=== PATIENT | male | born 1995 | race African-American/Black ===

== ENCOUNTER 2016-03-30 23:27 | Emergency (ER) | payer SELFPAY ==
[2016-03-31] MEDS ORDERED: Sulfameth/Trimethoprim DS 800-160mg TAB ONE ×2 (00:16)
--- NOTE | 2016-03-31 01:02 | ERRECORD ---
[facility] EMERGENCY RECORD HPI ABSCESS (TueMar 31, 2016 00:24 DHAM) CHIEF COMPLAINT: Patient presents for evaluation of swelling, Patient presents for evaluation of pain. HISTORIAN: History provided by patient. LOCATION: Symptoms are localized, most severe to right lateral hip. QUALITY: Pain is dull in nature, described as aching. SEVERITY: Current severity of pain rated as 4/10. TIME COURSE: Gradual onset of symptoms, 3, weeks ago, Symptoms are worsening, several lesions in this right lateral hip area "looked like scabs." but they dried up. this one is swelling and started draining today. ASSOCIATED WITH: No associated chills, Associated with drainage, No associated fever, Associated with warmth. COMPLICATING FACTORS: No complicating factors for wound healing. EXACERBATED BY: Patient's condition exacerbated by pressure in the area. RELIEVED BY: Patient's condition relieved by nothing. TETANUS: Tetanus status up to date. ROS (TueMar 31, 2016 00:24 DHAM) CONSTITUTIONAL: Negative constitutional review of systems, Historian denies chills, denies fatigue, denies fever. EYES: Negative eye review of systems, Historian denies eye pain, denies eye redness. ENT: Negative ears, nose, throat review of systems. CARDIOVASCULAR: Historian denies chest pain, denies dyspnea on exertion, denies syncope. RESPIRATORY: Historian denies cough, denies shortness of breath, denies sputum. GI: Historian denies abdominal pain, denies diarrhea, denies nausea, denies vomiting. GENITOURINARY MALE: Historian denies dysuria, denies urinary frequency, denies urinary urgency. MUSCULOSKELETAL: Historian denies arthralgias, denies myalgias, denies neck pain. SKIN: Historian denies cellulitis, denies rash, reports skin changes, reports skin lesions. NEUROLOGIC: Historian denies confusion, denies headache, denies paresthesias. PSYCHIATRIC: Historian denies anxiety, denies depression. NOTES: All systems reviewed, negative except as described above. PAST MEDICAL HISTORY MEDICAL HISTORY: Flu vaccine not up to date, Tetanus not up to date, Pneumococcal vaccine not up to date, Past medical history includes pulmonary disease, asthma. REVIEWED 03/30/16. (23:34 AADK) Flu vaccine not up to date, Tetanus up to date, Pneumococcal vaccine not up to date, Past medical history includes pulmonary &a-1R&a+25V*p+0X*p3887F*c202B*c15G*c2P*p-0X&a-25V&a+1R Name: Mariposa Hicks : 1995 M20 MedRec: [id number] AcctNum: [id number] Prepared: TueMar 31, 2016 09:03 by Interface Page 1 of 3 pMD [facility] EMERGENCY RECORD disease, asthma. REVIEWED 03/30/16. (TueMar 31, 2016 00:23 DHAM) MALE SURGICAL HISTORY: Patient has no surgical history. REVIEWED 03/30/16. (23:34 AADK) PSYCHIATRIC HISTORY: No previous psychiatric history. REVIEWED 03/30/16. (23:34 AADK) SOCIAL HISTORY: Patient denies alcohol use, Patient denies drug use, Patient has no smoking history. REVIEWED 03/30/16. (23:34 AADK) FAMILY HISTORY: Family istory is not significant. (23:34 AADK) KNOWN ALLERGIES No Known Drug Allergies CURRENT MEDICATIONS (23:32 AADK) None VITAL SIGNS VITAL SIGNS: BP: 124/72, Pulse: 70 (Regular), Resp: 18 (Non-Labored), Temp: 98.2 (Oral), Pain: 4 (Constant), O2 sat: 99 on Room Air, Time: 03/30/2016 23:35. (23:35 AADK) BP: 118/68, Pulse: 66, Resp: 18 (Non-Labored), Temp: 97.9 (Oral), Pain: 0, O2 sat: 98 on Room Air, Time: 03/31/2016 00:44. (TueMar 31, 2016 00:44 AADK) PHYSICAL EXAM (TueMar 31, 2016 00:24 DHAM) CONSTITUTIONAL: Vital signs reviewed, Patient afebrile, Pulse normal, Blood pressure normal, Respiratory rate normal, Patient appears non toxic, Patient appears in pain, in mild pain distress, Patient alert and oriented to person, place and time. RESPIRATORY CHEST: Breath sounds clear, No wheezing, No rales, No rhonchi. CARDIOVASCULAR: Cardiovascular exam included findings of heart rate regular rate and rhythm, Heart sounds normal, Point of maximal impulse normal. ABDOMEN MALE: Abdominal exam included findings of abdomen nontender, Bowel sounds normal, Liver normal, Spleen normal, no distension, no mass, no peritoneal signs. UPPER EXTREMITY: Upper extremity exam normal, Radial pulse normal. LOWER EXTREMITY: Lower extremity exam included findings of inspection normal, Range of motion normal, Motor strength normal, see skin below. NEURO: [place] coma scale 15, Neuro exam findings include patient oriented to person, place and time, Speech normal, Gait normal, Cranial nerves intact. SKIN: Skin exam included findings of skin warm, dry, and normal in color, Rash present, right lateral hip over greater trochanter has a 3x3cm area of induration that is draining yellow pus. it is tender, and slightly warm. there are several 1-2cm dry &a-1R&a+25V*p+0X*f8725E*c202B*c15G*c2P*p-0X&a-25V&a+1R Name: Mariposa Hicks : 1995 M20 MedRec: [id number] AcctNum: [id number] Prepared: TueMar 31, 2016 09:03 by Interface Page 2 of 3 pMD [facility] EMERGENCY RECORD scabs that appear to be resolving. there is a .5x.5 cm nodule that is tender just 5cm inferior to the larger draining site. PSYCHIATRIC: Psychiatric exam included findings of patient oriented to person place and time, Normal affect, Judgment normal, Insight normal. MEDICATION ADMINISTRATION SUMMARY Drug Name: Bactrim DS, Dose Ordered: 2 tab(s), Route: Oral, Status: Given, Time: 00:17 03/31/2016, Detailed record available in Medication Service section. DOCTOR NOTES (TueMar 31, 2016 00:32 DHAM) TEXT: as this area is draining nicely, I think he will continue to improve with just oral abx. see dci. PROBLEM LIST No recorded problems DIAGNOSIS (TueMar 31, 2016 00:34 DHAM) FINAL: PRIMARY: abscess right hip. PRESCRIPTION (TueMar 31, 2016 00:34 DHAM) Bactrim DS: TABLET : 800 mg-160 mg : ORAL : Quantity: 1 Unit: tab(s) Route: ORAL Schedule: 2 times a day (before meals) Dispense: 24 Unit: tab(s) May substitute. Refills: No Refills . NOTES: 2 twice a day for 2 days the one twice a day for 8 more days No refills. DISPOSITION PATIENT: Disposition Type: Discharge, Disposition: *Discharge Home. (TueMar 31, 2016 00:34 TE) Patient left the department. (TueMar 31, 2016 00:50 VIVIAN) Vargas: VIVIAN=ADRIENNE Shetes, Jaelyn TIWARI=MD Manny, Addison &a-1R&a+25V*p+0X*k2020S*c202B*c15G*c2P*p-0X&a-25V&a+1R Name: Kurt Morenitapeng Cabrera : 1995 M20 MedRec: [id number] AcctNum: [id number] Prepared: TueMar 31, 2016 09:03 by Interface Page 3 of 3 pMD MTDD
--- NOTE | 2016-03-31 01:03 | PICIS ---
[facility] EMERGENCY RECORD TRIAGE (23:32 AADK) PATIENT: NAME: Mariposa Hicks, AGE: 20, GENDER: male, : Tue1995, TIME OF GREET: TueMar 30, 2016 23:28, PREFERRED LANGUAGE: Sami, ETHNICITY: Not or , ECODE BILLING MAP: [facility], SSN: [id number], Zip Code: [address], KG WEIGHT: [phone] (est.), PHONE: , , , PERSON ID: [id number], PAYMENT: [employer] Self Pay, PCP: NONE. (23:32 AADK) COMPLAINT: BUMP ON RIGHT HIP AND LEG. (23:32 AADK) ADMISSION: URGENCY: 4 Non Urgent, ADMISSION SOURCE: Home, TRANSPORT: CAR, BED: ER -02. (23:32 AADK) PAIN: Patient complains of pain described as, burning, stabbing, on a scale 0-10 patient rates pain as 4, Location RIGHT HIP/THIGH, Pain is constant. (23:34 AADK) TRIAGE SCREENING: Patient denies suicidal ideation, Patient denies presence of domestic violence. (23:34 AADK) PROVIDERS: TRIAGE NURSE: Jaelyn Sheets RN. (23:32 AADK) PREVIOUS VISIT ALLERGIES: No Known Drug Allergies. (23:32 AADK) No Known Drug Allergies. (23:34 AADK) KNOWN ALLERGIES No Known Drug Allergies CURRENT MEDICATIONS (23:32 AADK) None VITAL SIGNS VITAL SIGNS: BP: 124/72, Pulse: 70 (Regular), Resp: 18 (Non-Labored), Temp: 98.2 (Oral), Pain: 4 (Constant), O2 sat: 99 on Room Air, Time: 03/30/2016 23:35. (23:35 AADK) BP: 118/68, Pulse: 66, Resp: 18 (Non-Labored), Temp: 97.9 (Oral), Pain: 0, O2 sat: 98 on Room Air, Time: 03/31/2016 00:44. (TueMar 31, 2016 00:44 AADK) NURSING ASSESSMENT: SKIN (23:32 AADK) CONSTITUTIONAL: Patient arrives ambulatory, Gait steady, History obtained from patient, Patient appears comfortable, Patient cooperative, Patient alert, Oriented to person, place and time, Skin warm, Skin dry, Skin normal in color, Mucous membranes pink, Mucous membranes moist, Patient is well-groomed, Patient complains of BUMP ON RIGHT HIP AND LEG, PT PRESENTS TO ER WITH C/O BUMP TO RIGHT HIP AND LEG X2 WEEKS. PT STATES AREA STARTED HURTING TODAY IS WHY HE CAME TO ER. NOTED ABSCESS TO RIGHT OUTER HIP, DRAINING SCANT AMOUNT OF BLOOD, AREA WARM TO TOUCH WITH INDURATION. PT ALSO HAS A SECOND AREA JUST BELOW THIS ONE THAT IS INDURATED BUT NOT RED OR WARM TO TOUCH. THIS ONE HAS A YELLOW CENTER AND NO DRAINAGE. PT ALSO STATES 2 OTHER AREAS THAT WERE LIKE THESE THAT ARE NOW SCABBED. NOTED THESE AREAS ARE ALSO TO RIGHT LEG, UPPER, OUTER THIGH AREA. NO INDURATION NOTED, AREAS ARE SCABBED. PT DENIES HX OF STAPH. &a-1R&a+25V*p+0X*e4228Q*c202B*c15G*c2P*p-0X&a-25V&a+1R Name: Mariposa Hicks : 1995 M20 MedRec: [id number] AcctNum: [id number] Prepared: TueMar 31, 2016 09:10 by Interface Page 1 of 6 pMD [facility] EMERGENCY RECORD SKIN: Skin assessment findings include skin warm, Skin dry, Skin normal in color, Inspection findings include redness, to RIGHT HIP, Inspection findings include signs of infection, to RIGHT HIP, Notes: ABSCESS. SAFETY: Side rails up, Cart/Stretcher in lowest position, Call light within reach, Hospital ID band on, Friend(s) at bedside, Patient in view of the nursing station. NURSING PROCEDURE: DISCHARGE NOTE (TueMar 31, 2016 00:48 AADK) DISCHARGE: Patient discharged to home, ambulating without assistance, driving self, accompanied by friend, Summary of Care printed/ provided, Patient requested and was provided an electronic copy of Discharge Instructions, Transition record given to patient, Discharge instructions given to patient, Simple or moderate discharge teaching performed, Prescriptions given and instructions on side effects given, Above person(s) verbalized understanding of discharge instructions and follow-up care. BELONGINGS: Belongings remain with patient, Valuables remain with patient. MEDICATION ADMINISTRATION SUMMARY Drug Name: Bactrim DS, Dose Ordered: 2 tab(s), Route: Oral, Status: Given, Time: 00:17 03/31/2016, Detailed record available in Medication Service section. MEDICATION SERVICE Bactrim DS: Order: Bactrim DS (sulfamethoxazole/trimethoprim) - Dose: 2 tab(s) : Oral Schedule: Now Ordered by: Addison Bryant MD Entered by: Addison Bryant MD TueMar 31, 2016 00:06 Documented as given by: Bridgette Mallory RN TueMar 31, 2016 00:17 Patient, Medication, Dose, Route and Time verified prior to administration. Amount given: 2 TABS, Correct patient, time, route, dose and medication confirmed prior to administration, Patient advised of actions and side-effects prior to administration, Allergies confirmed and medications reviewed prior to administration, Patient in position of comfort, Side rails up, Cart in lowest position, Family at bedside. : Follow Up : Response assessment performed, No signs or symptoms of allergic reaction noted. (TueMar 31, 2016 00:45 AADK) HPI ABSCESS (TueMar 31, 2016 00:24 DHAM) CHIEF COMPLAINT: Patient presents for evaluation of swelling, Patient presents for evaluation of pain. HISTORIAN: History provided by patient. LOCATION: Symptoms are localized, most severe to right &a-1R&a+25V*p+0X*b1148T*c202B*c15G*c2P*p-0X&a-25V&a+1R Name: Mariposa Hicks : 1995 M20 MedRec: [id number] AcctNum: [id number] Prepared: TueMar 31, 2016 09:10 by Interface Page 2 of 6 pMD [facility] EMERGENCY RECORD lateral hip. QUALITY: Pain is dull in nature, described as aching. SEVERITY: Current severity of pain rated as 4/10. TIME COURSE: Gradual onset of symptoms, 3, weeks ago, Symptoms are worsening, several lesions in this right lateral hip area "looked like scabs." but they dried up. this one is swelling and started draining today. ASSOCIATED WITH: No associated chills, Associated with drainage, No associated fever, Associated with warmth. COMPLICATING FACTORS: No complicating factors for wound healing. EXACERBATED BY: Patient's condition exacerbated by pressure in the area. RELIEVED BY: Patient's condition relieved by nothing. TETANUS: Tetanus status up to date. ROS (TueMar 31, 2016 00:24 DHAM) CONSTITUTIONAL: Negative constitutional review of systems, Historian denies chills, denies fatigue, denies fever. EYES: Negative eye review of systems, Historian denies eye pain, denies eye redness. ENT: Negative ears, nose, throat review of systems. CARDIOVASCULAR: Historian denies chest pain, denies dyspnea on exertion, denies syncope. RESPIRATORY: Historian denies cough, denies shortness of breath, denies sputum. GI: Historian denies abdominal pain, denies diarrhea, denies nausea, denies vomiting. GENITOURINARY MALE: Historian denies dysuria, denies urinary frequency, denies urinary urgency. MUSCULOSKELETAL: Historian denies arthralgias, denies myalgias, denies neck pain. SKIN: Historian denies cellulitis, denies rash, reports skin changes, reports skin lesions. NEUROLOGIC: Historian denies confusion, denies headache, denies paresthesias. PSYCHIATRIC: Historian denies anxiety, denies depression. NOTES: All systems reviewed, negative except as described above. PAST MEDICAL HISTORY MEDICAL HISTORY: Flu vaccine not up to date, Tetanus not up to date, Pneumococcal vaccine not up to date, Past medical history includes pulmonary disease, asthma. REVIEWED 03/30/16. (23:34 AADK) Flu vaccine not up to date, Tetanus up to date, Pneumococcal vaccine not up to date, Past medical history includes pulmonary disease, asthma. REVIEWED 03/30/16. (TueMar 31, 2016 00:23 DHAM) MALE SURGICAL HISTORY: Patient has no surgical history. REVIEWED 03/30/16. (23:34 AADK) PSYCHIATRIC HISTORY: No previous psychiatric history. REVIEWED 03/30/16. (23:34 AADK) &a-1R&a+25V*p+0X*j5929I*c202B*c15G*c2P*p-0X&a-25V&a+1R Name: Mariposa Hicks : 1995 M20 MedRec: [id number] AcctNum: [id number] Prepared: TueMar 31, 2016 09:10 by Interface Page 3 of 6 pMD [facility] EMERGENCY RECORD SOCIAL HISTORY: Patient denies alcohol use, Patient denies drug use, Patient has no smoking history. REVIEWED 03/30/16. (23:34 AADK) FAMILY HISTORY: Family istory is not significant. (23:34 AADK) PHYSICAL EXAM (TueMar 31, 2016 00:24 DHAM) CONSTITUTIONAL: Vital signs reviewed, Patient afebrile, Pulse normal, Blood pressure normal, Respiratory rate normal, Patient appears non toxic, Patient appears in pain, in mild pain distress, Patient alert and oriented to person, place and time. RESPIRATORY CHEST: Breath sounds clear, No wheezing, No rales, No rhonchi. CARDIOVASCULAR: Cardiovascular exam included findings of heart rate regular rate and rhythm, Heart sounds normal, Point of maximal impulse normal. ABDOMEN MALE: Abdominal exam included findings of abdomen nontender, Bowel sounds normal, Liver normal, Spleen normal, no distension, no mass, no peritoneal signs. UPPER EXTREMITY: Upper extremity exam normal, Radial pulse normal. LOWER EXTREMITY: Lower extremity exam included findings of inspection normal, Range of motion normal, Motor strength normal, see skin below. NEURO: [place] coma scale 15, Neuro exam findings include patient oriented to person, place and time, Speech normal, Gait normal, Cranial nerves intact. SKIN: Skin exam included findings of skin warm, dry, and normal in color, Rash present, right lateral hip over greater trochanter has a 3x3cm area of induration that is draining yellow pus. it is tender, and slightly warm. there are several 1-2cm dry scabs that appear to be resolving. there is a .5x.5 cm nodule that is tender just 5cm inferior to the larger draining site. PSYCHIATRIC: Psychiatric exam included findings of patient oriented to person place and time, Normal affect, Judgment normal, Insight normal. EVENTS TRANSFER: Triage to Emergency Emergency Room -02. (TueMar 30, 2016 23:32 AADK) Removed from Emergency Emergency Room -02. (TueMar 31, 2016 00:50 AADK) O2SAT INTERPRETATION (TueMar 31, 2016 00:23 DHAM) O2SAT: Single pulse oximetry, Oxygen saturation 99%, on room air, Oxygen saturation interpretation: Normal, No intervention required. DOCTOR NOTES (TueMar 31, 2016 00:32 DHAM) TEXT: as this area is draining nicely, I think he will continue to improve with just oral abx. see dci. &a-1R&a+25V*p+0X*k7240R*c202B*c15G*c2P*p-0X&a-25V&a+1R Name: Mariposa Hicks : 1995 M20 MedRec: [id number] AcctNum: [id number] Prepared: TueMar 31, 2016 09:10 by Interface Page 4 of 6 pMD [facility] EMERGENCY RECORD INCISION AND DRAINAGE (TueMar 31, 2016 00:24 DHAM) INCISION AND DRAINAGE: Side and/or site verified, Patient identification confirmed, Sterile procedures observed, Verbal consent obtained, Incision and drainage indicated for cutaneous abscess, There are no contraindications, 1% Lidocaine with epinephrine used, 8 mLs, Incision and drainage, Incision was made over area of fluctuance, Explored for loculations, Packed with sterile gauze, Drained serosanguinous, Amount (mLs) <1ml, After procedure, wound dressed, After procedure, neurovascular status normal, There were no complications, Tetanus status not up to date, tetanus immunization ordered, Patient tolerated the procedure well. PROBLEM LIST No recorded problems DIAGNOSIS (TueMar 31, 2016 00:34 DHAM) FINAL: PRIMARY: abscess right hip. DISPOSITION PATIENT: Disposition Type: Discharge, Disposition: *Discharge Home. (TueMar 31, 2016 00:34 DHAM) Patient left the department. (TueMar 31, 2016 00:50 AADK) INSTRUCTION (TueMar 31, 2016 00:37 DHAM) DISCHARGE: ABSCESS, ABX ONLY. SPECIAL: Take bactrim 2 twice a day for 4 doses then one twice a day for 8 more days. Use a warm soak to the sore 30 minutes after taking the antibiotics. Clean wounds twice a day with soap and water . Use chlorhexidine soap three times a week in the shower for next several months to prevent recurrence. Return for any fevers, nausea/vomiting, worsened redness or other concerns. PRESCRIPTION (TueMar 31, 2016 00:34 DHAM) Bactrim DS: TABLET : 800 mg-160 mg : ORAL : Quantity: 1 Unit: tab(s) Route: ORAL Schedule: 2 times a day (before meals) Dispense: 24 Unit: tab(s) May substitute. Refills: No Refills . NOTES: 2 twice a day for 2 days the one twice a day for 8 more days No refills. IMAGING *SUPPLY CHARGE SHEET: Image captured from scanner. (TueMar 31, 2016 00:48 AADK) *DISCHARGE INSTRUCTIONS RECEIPT: Image captured from scanner. (TueMar 31, 2016 00:49 AADK) ADMIN (TueMar 31, 2016 08:56 TE) &a-1R&a+25V*p+0X*f3446F*c202B*c15G*c2P*p-0X&a-25V&a+1R Name: Mariposa Hicks : 1995 1 MedRec: [id number] AcctNum: [id number] Prepared: TueMar 31, 2016 09:10 by Interface Page 5 of 6 pMD [facility] EMERGENCY RECORD DIGITAL SIGNATURE: MD Bryant Darren. Vargas: VIVIAN=ADRIENNE Sheets, Jaelyn TIWARI=MD Manny, Addison &a-1R&a+25V*p+0X*b6414D*c202B*c15G*c2P*p-0X&a-25V&a+1R Name: Mariposa Hicks : 1995 M20 MedRec: [id number] AcctNum: [id number] Prepared: TueMar 31, 2016 09:10 by Interface Page 6 of 6 pMD MTDD
== END 2016-03-31 00:48 | disposition home or self-care (01) ==
LOC: BURERS 23:27
DX: L02.415 Cutaneous abscess of right lower limb (principal); J45.909 Unspecified asthma, uncomplicated
CPT/HCPCS: 10060